=== PATIENT | female | born 1945 | race Caucasian/White ===

== ENCOUNTER 2018-10-30 00:44 | Outpatient (CLI) | payer MEDICARE, SELFPAY ==
[2018-10-30 08:37] LABS: Hemoglobin A1C 6.6 % (4.5-6.2)
[2018-10-30 09:50] LABS: Glucose 135 mg/dL (70-100)
== END 2018-10-30 01:04 ==
DX: E03.9 Hypothyroidism, unspecified (principal); R73.01 Impaired fasting glucose
CPT/HCPCS: 36415; 82947; 83036; 84443

== ENCOUNTER 2019-07-29 12:33 | Outpatient (REF) | payer MEDICARE, SELFPAY ==
[2019-07-29 13:38] LABS: Anion Gap 9.3 mmol/L (3-11); BUN 16 mg/dL (7-18); CO2 28.7 mmol/L (21.0-32.0); CREATININE 1.15 mg/dL (0.55-1.02); Calcium 9.1 mg/dL (8.5-10.1); Calculated LDL 117 mg/dL; Chloride 105 mmol/L (98-107); Cholesterol 192 mg/dL (50-200); Glucose 122 mg/dL (70-100); HDL Cholesterol 54 mg/dL (40-60); Potassium 4.2 mmol/L (3.5-5.1); Sodium 143 mmol/L (136-145); Triglyceride 105 mg/dL (30-150)
== END 2019-07-29 12:53 ==
LOC: NCHCN 12:33
PROVIDERS: PCP Nurse Practitioner Family; Visit Provider Nurse Practitioner Family
DX: E78.5 Hyperlipidemia, unspecified (principal); I10 Essential (primary) hypertension; E03.9 Hypothyroidism, unspecified
CPT/HCPCS: 80048; 80061; 84443

== ENCOUNTER 2021-02-21 14:05 | Outpatient (REF) | payer MEDICARE, SELFPAY ==
[2021-02-21 16:02] LABS: TSH (W/Ref FT4) 0.81 uIU/mL (0.36-3.74)
== END 2021-02-21 14:06 | disposition home or self-care (01) ==
LOC: LBN 14:05
PROVIDERS: PCP Nurse Practitioner Family; Visit Provider Nurse Practitioner Family
DX: E03.9 Hypothyroidism, unspecified (principal)
CPT/HCPCS: 84443

== ENCOUNTER 2021-04-24 16:57 | Outpatient (REF) | payer MEDICARE, SELFPAY ==
[2021-04-24 22:03] LABS: Abs Immature Grans 0.03 10^3/uL (0.0-0.06); Absolute Basophil Count 0.05 10^3/uL (0.0-0.2); Absolute Eosinophil Count 0.12 10^3/uL (0.0-0.7); Absolute Lymphocyte Count 2.16 10^3/uL (1.2-3.4); Absolute Monocyte Count 0.79 10^3/uL (0.1-0.8); Absolute Neutrophil Count 5.02 10^3/uL (1.2-6.7); Basophils % 0.6; Eosinophils % 1.5; HCT 44.1 % (36.0-46.0); HGB 14.6 g/dL (11.2-15.7); Immature Grans % 0.4; Lymphocytes % 26.4; MCH 32.2 pg (27.0-33.0); MCHC 33.1 % (32.0-36.0); MCV 97.4 fL (80-95); Monocytes % 9.7; Neutrophils % 61.4; Nucleated RBC 0 %; Platelet Count 223 10^3/uL (130-400); RBC 4.53 10^6/uL (3.93-5.22); RDW 13.2 % (11.7-14.6); WBC 8.17 10^3/uL (4.4-10.8)
[2021-04-24 22:23] LABS: Iron 95 ug/dL (50-170); Total Iron Binding Capacity 257 ug/dL (250-450); Transferrin Sat 37 % (15-50)
[2021-04-24 22:24] LABS: Hemoglobin A1C 6.9 % (<5.7)
[2021-04-24 22:33] LABS: BUN 18 mg/dL (7-18); CREATININE 1.3 mg/dL (0.55-1.02); Calcium 9.2 mg/dL (8.5-10.1); Chloride 108 mmol/L (98-107); Estimated GFR 39.72 (mL/min/1.73m2); Ferritin 107 ng/mL (8-252); Glucose 121 mg/dL (74-106); Potassium 4.1 mmol/L (3.5-5.1); Sodium 144 mmol/L (136-145)
[2021-04-26 10:37] LABS: Lyme Ab w Rflx to Lyme Confirm Negative (Negative)
== END 2021-04-24 16:58 | disposition home or self-care (01) ==
LOC: NCHCN 16:57
PROVIDERS: PCP Nurse Practitioner Family; Visit Provider Nurse Practitioner Family
DX: I10 Essential (primary) hypertension (principal); R73.03 Prediabetes; R53.83 Other fatigue; T14.8XXA Other injury of unspecified body region, initial encounter; W57.XXXA Bitten or stung by nonvenomous insect and other nonvenomous arthropods, initial encounter
CPT/HCPCS: 80048; 82728; 83036; 83540; 83550; 85025; 86618

== ENCOUNTER 2022-08-29 16:12 | Outpatient (REF) | payer MEDICARE, SELFPAY ==
[2022-08-29 16:44] LABS: Hemoglobin A1C 6.4 % (<5.7)
[2022-08-29 16:54] LABS: Anion Gap 8.6 mmol/L (3-11); BUN 23 mg/dL (7-18); CO2 27.4 mmol/L (21.0-32.0); CREATININE 1.2 mg/dL (0.55-1.02); Calcium 9.4 mg/dL (8.5-10.1); Chloride 106 mmol/L (98-107); Estimated GFR 46.05 (mL/min/1.73m2); Glucose 130 mg/dL (74-106); Sodium 142 mmol/L (136-145); TSH (W/Ref FT4) 0.26 uIU/mL (0.36-3.74)
[2022-08-29 17:11] LABS: FREE T4 1.19 ng/dL (0.76-1.46)
== END 2022-08-29 16:13 | disposition home or self-care (01) ==
LOC: NCHCN 16:12
PROVIDERS: PCP Nurse Practitioner Family; Visit Provider Nurse Practitioner Family
DX: E11.9 Type 2 diabetes mellitus without complications (principal); I10 Essential (primary) hypertension; E03.9 Hypothyroidism, unspecified
CPT/HCPCS: 80048; 83036; 84439; 84443

== ENCOUNTER 2022-12-24 17:52 | Outpatient (REF) | payer MEDICARE, SELFPAY ==
[2022-12-24 17:11] LABS: Anion Gap 6.7 mmol/L (3-11); BUN 13 mg/dL (7-18); CO2 29.3 mmol/L (21.0-32.0); CREATININE 1.1 mg/dL (0.55-1.02); Calcium 9.2 mg/dL (8.5-10.1); Chloride 105 mmol/L (98-107); Estimated GFR 51.11 (mL/min/1.73m2); Glucose 121 mg/dL (74-106); Potassium 4.5 mmol/L (3.5-5.1); Sodium 141 mmol/L (136-145); TSH (W/Ref FT4) 1.01 uIU/mL (0.36-3.74)
[2022-12-24 18:42] LABS: Hemoglobin A1C 6.6 % (<5.7)
== END 2022-12-24 17:53 | disposition home or self-care (01) ==
LOC: NCHCN 17:52
PROVIDERS: PCP Nurse Practitioner Family; Visit Provider Nurse Practitioner Family
DX: E11.9 Type 2 diabetes mellitus without complications (principal); E03.9 Hypothyroidism, unspecified; I10 Essential (primary) hypertension
CPT/HCPCS: 80048; 83036; 84443

== ENCOUNTER 2023-06-03 15:41 | Outpatient (REF) | payer MEDICARE, SELFPAY ==
[2023-06-03 21:19] LABS: Anion Gap 8.6 mmol/L (3-11); BUN 17 mg/dL (7-18); CO2 26.4 mmol/L (21.0-32.0); CREATININE 1.3 mg/dL (0.55-1.02); Chloride 109 mmol/L (98-107); Estimated GFR 41.83 (mL/min/1.73m2); Glucose 131 mg/dL (74-106); Potassium 4.3 mmol/L (3.5-5.1); Sodium 144 mmol/L (136-145); TSH 0.33 uIU/mL (0.36-3.74)
[2023-06-03 22:42] LABS: Hemoglobin A1C 6.4 % (<5.7)
== END 2023-06-03 15:42 | disposition home or self-care (01) ==
LOC: NCHCN 15:41
PROVIDERS: PCP Nurse Practitioner Family; Visit Provider Nurse Practitioner Family
DX: E03.9 Hypothyroidism, unspecified (principal); E11.9 Type 2 diabetes mellitus without complications
CPT/HCPCS: 80048; 83036; 84443

== ENCOUNTER 2023-08-25 08:26 | Outpatient (REF) | payer MEDICARE, SELFPAY ==
[2023-08-21 20:53] LABS: FREE T4 1.13 ng/dL (0.76-1.46); TSH (W/Ref FT4) 0.35 uIU/mL (0.36-3.74)
== END 2023-08-25 08:27 ==
LOC: NCHCN 08:26
PROVIDERS: PCP Nurse Practitioner Family; Visit Provider Nurse Practitioner Family
DX: E03.9 Hypothyroidism, unspecified (principal)
CPT/HCPCS: 84439; 84443

== ENCOUNTER 2024-03-05 21:10 | Outpatient (REF) | payer MEDICARE, SELFPAY ==
[2024-03-05 21:09] LABS: TSH (W/Ref FT4) 8.24 uIU/mL (0.36-3.74)
[2024-03-05 21:32] LABS: FREE T4 1.08 ng/dL (0.76-1.46)
== END 2024-03-05 21:11 | disposition home or self-care (01) ==
LOC: LBN 21:10
PROVIDERS: PCP Physician Assistant Medical; Visit Provider Physician Assistant Medical
DX: E03.9 Hypothyroidism, unspecified (principal)
CPT/HCPCS: 84439; 84443

== ENCOUNTER 2024-04-02 17:57 | Emergency (ER) | payer MEDICARE, SELFPAY ==
[2024-04-02 18:01] VITALS: BP 179/67; PULSE 90; RESP 18; TEMP 36.5; O2SAT 97
[2024-04-02] MEDS: Acetaminophen 325 MG TAB (19:09)
--- NOTE | 2024-04-02 19:27 | W.ED.GENAD ---
Discharge Plan Disposition Patient Disposition: Home Condition: Improving Discharge Details Chief Complaint: Laceration Clinical Impression: Bleeding from wound Primary Care Provider: Lorna Weston ED Provider: Rafat Carlson Home Meds and New Rx's Prescriptions: No Action levothyroxine 125 mcg tablet 125 mcg PO DAILY Qty: 90 3RF Rx Instructions: aspirin,buffd-calcium carb-mag 325 MG tablet 325 mg PO DAILY Patient Comments: 04/29/17 takes pr[address]. DL aspirin [Aspir-81] 81 MG tablet,delayed release (DR/EC) 81 mg PO DAILY glucosam-chond bv-kqqqzw-xz ac 1 EACH capsule 1 tab PO DAILY PRN Discharge Instructions Instructions: Wound Care ED Additional Instructions: Please follow-up closely with your primary care physician. We will arrange follow-up with palliative care team and care management team. Return to the emerged department for any worsening symptoms HPI General Date/Time Provider Initiated Documentation: 04/02/24 18:12. HPI Narrative: 78-year-old female history of progressive sarcoma right lower extremity presents referred in from [facility] for evaluation of venous oozing from lower extremity mass. Patient endorses that she is not pursuing aggressive treatment for sarcoma and wishes to discuss hospice options Related Data Home Medications Medication Instructions Recorded Confirmed aspirin 81 mg tablet,delayed 81 mg PO DAILY 04/26/16 05/14/16 release (Aspir-) aspirin,buffered (calcium 325 mg PO DAILY 04/26/16 05/14/16 carbonate-magnesium) 325 mg tablet kocicyhzfk-iujatudzic-bursfjpk-hyalur 1 tab PO DAILY PRN 04/26/16 05/14/16 ac 375 mg-300 mg-175 mg-2 mg cap levothyroxine 125 mcg tablet 125 mcg PO DAILY #90 tab-caps 02/25/19 Previous Rx's Medication Instructions Recorded levothyroxine 125 mcg tablet 125 mcg PO DAILY #90 tab-caps 02/25/19 Allergies Allergy/AdvReac Type Severity Reaction Status Date / Time codeine AdvReac Intermediate MIGRAINE, Unverified 12/22/17 14:24 VISUAL CHANGES General Stated Complaint: Laceration DHIRAJ: 3 Review of Systems Narrative: Review of Systems Constitutional: negative Eyes: negative ENT: negative Cardiovascular: negative Respiratory: negative Gastrointestinal: negative : negative Musculoskeletal: Bleeding lower extremity sarcoma Skin: negative Neurologic: negative Psych: negative Exam Narrative Exam Narrative: Physical Examination General: alert, awake, cooperative, resting comfortably, no acute distress HEENT: normocephalic, atraumatic; PERRL, EOM intact, conjunctiva normal; no nasal discharge; moist mucous membranes, oral and pharyngeal mucosa normal, tolerating secretions Neck: supple, trachea midline; full ROM Chest: normal to inspection Respiratory: normal respiratory effort, speaking in full sentences Skin: See extremity Neuro: AAOx3, normal speech, moving all extremities Extremities: Large fungating mass distal right lower extremity anterior with areas of serosanguineous oozing; full range of motion lower extremity, warm well-perfused sensate Psych: Appropriate mood and affect Course Vital Signs Vital signs: Vital Signs Temperature 36.5 C 04/02/24 18:01 Pulse 90 04/02/24 18:01 Respiratory Rate 18 04/02/24 18:01 Blood Pressure 179/67 H 04/02/24 18:01 Pulse Oximetry 97 04/02/24 18:01 Temperature 36.5 C 04/02/24 18:01 Temperature Source Temporal Artery Scan 04/02/24 18:01 Pulse 90 04/02/24 18:01 Respiratory Rate 18 04/02/24 18:01 Blood Pressure 179/67 H 04/02/24 18:01 Blood Pressure Position Sitting 04/02/24 18:01 Pulse Oximetry 97 04/02/24 18:01 Oxygen Delivery Method Room Air 04/02/24 18:01 Oxygen Flow Rate 0 04/02/24 18:01 Medical Decision Making 78-year-old female presents with serosanguineous oozing from large sarcoma to right lower extremity, has been progressive over the last year, was given treatment options as an outpatient but would not like to pursue further medical management and is seeking assistance with home health care and/or hospice and palliative care. Patient initially did not feel comfortable going home tonight as she is worried that the wound will continue to ooze. No evidence of active bleeding patient does have some serosanguineous drainage minimal in nature improved after application of Surgicel and Xeroform and pressure dressing. Discussed case with hospitalist for potential admission for arrangement of hospice/home health. Offered to observe patient here in department tonight to arrange further care, patient now wanting to go home. Son here at bedside will be able to get her home tonight. Will arrange follow-up with care management and palliative care team. Home care instructions and return precautions given Quality:SDOH Health Related Social Needs: No Data to Display PFSH All Active Problems (Updated 04/02/24 @ 20:31 by Rafat Carlson MD) Bleeding from wound (Acute) Surgical History (Updated 08/05/18 @ 14:34 by [employer]) Tonsillectomy Thyroid Hysterectomy, Laproscopic Family History Mother Personal history of malignant neoplasm Malignant melanoma Skin Father Personal history of malignant neoplasm Prostate Brother Personal history of malignant neoplasm Renal cell Grandfather No problems noted. Grandfather No problems noted. Grandmother No problems noted. Grandmother No problems noted. Social History Smoking/Tobacco Use Status: Never Smoking risk assessment performed?: Yes Drug use: Never
[2024-04-02] MEDS: Cellulose,Oxidized 2X3 PKT 1 EACH MC (20:47)
[2024-04-02 20:50] VITALS: BP 154/64; PULSE 90; RESP 18; TEMP 36.5; O2SAT 97
--- NOTE | 2024-04-02 23:38 | NUR.NOTE ---
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
--- NOTE | 2024-04-04 00:22 | NUR.NOTE ---
Palliative Care referral fax did not go through, will continue to try, if it doesn't go through over the weekend will ask ED ammunition specialist to try on Friday.Nursing Note:
== END 2024-04-02 20:48 | disposition home or self-care (01) ==
LOC: ER 20:58
PROVIDERS: Emergency Provider Emergency Medicine; PCP Nurse Practitioner Family
DX: C44.792 Other specified malignant neoplasm of skin of right lower limb, including hip (principal); R23.3 Spontaneous ecchymoses; Z79.82 Long term (current) use of aspirin
CPT/HCPCS: 99283

== ENCOUNTER 2024-04-02 21:31 | Outpatient (REF) | payer MEDICARE, SELFPAY ==
[2024-04-02 21:34] LABS: Abs Immature Grans 0.05 10^3/uL (0.0-0.06); Absolute Basophil Count 0.05 10^3/uL (0.0-0.2); Absolute Eosinophil Count 0.03 10^3/uL (0.0-0.7); Absolute Lymphocyte Count 1.75 10^3/uL (1.2-3.4); Absolute Monocyte Count 1.34 10^3/uL (0.1-0.8); Absolute Neutrophil Count 9.81 10^3/uL (1.2-6.7); Basophils % 0.4 %; Eosinophils % 0.2 %; HCT 41.2 % (36.0-46.0); HGB 13.6 g/dL (11.2-15.7); Immature Grans % 0.4 %; Lymphocytes % 13.4 %; MCH 31.7 pg (27.0-33.0); MCV 96 fL (80-95); MPV 10.8 fL (8.0-11.0); Monocytes % 10.3 %; Neutrophils % 75.3 %; Platelet Count 286 10^3/uL (130-400); RBC 4.29 10^6/uL (3.93-5.22); RDW 12.8 % (11.7-14.6); RDW-SD 45.4 fL; WBC 13.03 10^3/uL (4.4-10.8)
[2024-04-02 22:04] LABS: Hemoglobin A1C 6.1 % (<5.7)
== END 2024-04-02 21:32 | disposition home or self-care (01) ==
LOC: LBN 21:31
PROVIDERS: PCP Nurse Practitioner Family; Visit Provider Physician Assistant Medical
DX: E03.9 Hypothyroidism, unspecified (principal); R73.09 Other abnormal glucose
CPT/HCPCS: 83036; 85025